=== PATIENT | female | born 1985 | race Caucasian/White ===

== ENCOUNTER → 2017-02-20 | Outpatient (CLI) | payer SELFPAY ==
--- NOTE | 2017-02-20 15:24 | XR ---
EXAMINATION TYPE: XR chest 2V DATE OF EXAM: 02/20/2017 COMPARISON: 09/18/2012 HISTORY: Cough for 3 weeks TECHNIQUE: Frontal and lateral views of the chest are obtained. FINDINGS: There is no focal air space opacity, pleural effusion, or pneumothorax seen. The cardiac silhouette size is within normal limits. The osseous structures are intact. IMPRESSION: No acute cardiopulmonary process.
== END | disposition home or self-care (01) ==
LOC: RADXRMAIN 14:45
PROVIDERS: ATTEND Family Medicine
DX: R05 Cough (principal)
CPT/HCPCS: 71020

== ENCOUNTER 2017-09-30 09:12 | Emergency (ER) | payer SELFPAY | END 2017-09-30 11:37 | disposition home or self-care (01) | LOC: EC 09:12 | DX: G43.909 Migraine, unspecified, not intractable, without status migrainosus (principal); J32.9 Chronic sinusitis, unspecified | CPT/HCPCS: 96361; 96374; 96375; 99283 ==

== ENCOUNTER 2019-06-24 20:10 | Emergency (ER) | payer OTHER ==
[2019-06-24 20:15] VITALS: BP 136/98; PULSE 104; RESP 16; TEMP 97.7
[2019-06-24] MEDS ORDERED: KETOROLAC 30 MG/ML 1 ML VIAL IM STA (20:27)
[2019-06-24] MEDS ORDERED: HYDROcodone/APAP 5-325MG 1 EACH TAB PO STA (20:27)
[2019-06-24] MEDS ORDERED: LIDOCAINE 1% INJ 10MG/ML (20 ML MDV) SQ ONE (20:27)
[2019-06-24] MEDS ORDERED: ACET/COD 300 MG/30 MG STARTER PACK 6 TAB BTL PO STA (20:53)
[2019-06-24] MEDS ORDERED: SULFAMETH-TMP DS STARTER PACK 2 TAB BTL PO STA (20:53)
--- NOTE | 2019-06-24 21:17 | ED ---
General Adult HPI - General Chief complaint: Urogenital Stated complaint: Labial abscesses Time Seen by Provider: 06/24/19 20:18 Source: patient Mode of arrival: ambulatory Limitations: no limitations - History of Present Illness Initial comments: 33-year-old female patient presents to the emergency department today for evaluation of left labial abscess. Patient states that she was seen and evaluated by her physician yesterday and was started on antibiotics. She states that the pain has worsened and she feels like they're becoming larger. She lizzeth es any fevers or chills. States she has had these in the past. States she has never told she had MRSA. She states that there is been some mild drainage today. She denies any concern for sexually transmitted infection is in a monogamous relationship for several years. Patient denies any recent rash, cough, shortness of breath, chest pain, abdominal pain, nausea, vomiting, diarrhea, constipation, back pain, numbness, tingling, dizziness, weakness, hematuria, dysuria, urinary urgency, urinary frequency, headache, visual changes, or any other complaints. - Related Data Home Medications Medication Instructions Recorded Confirmed Desvenlafaxine Succinate [Pristiq 50 mg PO BID 07/10/15 07/10/15 ER] Etonogestrel [Nexplanon ( 68 mg SQ ONCE 07/10/15 07/10/15 control implant)] Multivitamins, Thera [Multivitamin] 1 tab PO DAILY 07/10/15 07/10/15 Nortriptyline [Pamelor] 50 mg PO DAILY 07/10/15 07/10/15 Omeprazole 20 mg PO BID 07/10/15 07/10/15 Previous Rx's Medication Instructions Recorded Amoxic-Pot Clav 875-125Mg 1 tab PO Q12HR #10 tablet 07/13/15 [Augmentin 875-125] HYDROcodone/APAP 7.5-325MG [[place] 1 each PO Q4H PRN #60 tab 07/13/15 7.5] Sulfamethoxazole/Trimethoprim 1 each PO BID #20 tablet 06/24/19 [Bactrim DS 800-160 mg] Allergies Allergy/AdvReac Type Severity Reaction Status Date / Time No Known Allergies Allergy Verified 06/24/19 20:15 Review of Systems ROS Statement: Those systems with pertinent positive or pertinent negative responses have been documented in the HPI. ROS Other: All systems not noted in ROS Statement are negative. Past Medical History Past Medical History: GERD/Reflux Additional Past Medical History / Comment(s): migraines,hypoglycemia History of Any Multi-Drug Resistant Organisms: None Reported Past Surgical History: Tonsillectomy Additional Past Surgical History / Comment(s): breast reduction,tummy tuck,liposuction Past Anesthesia/Blood Transfusion Reactions: Motion Sickness Past Psychological History: Anxiety, Depression Smoking Status: Never smoker Past Alcohol Use History: None Reported Past Drug Use History: None Reported - Past Family History Mother Family Medical History: Unable to Obtain General Exam Limitations: no limitations General appearance: alert, in no apparent distress, other (This is a well- developed, well-nourished adult female patient in no acute distress. Vital signs upon presentation are temperature 97.7F, pulse 104, respirations 16, blood pressure 136/98, pulse ox 100% on room air.) Eye exam: Present: normal appearance, PERRL, EOMI. Absent: scleral icterus, conjunctival injection, periorbital swelling ENT exam: Present: normal exam, normal oropharynx, mucous membranes moist Respiratory exam: Present: normal lung sounds bilaterally. Absent: respiratory distress, wheezes, rales, rhonchi, stridor Cardiovascular Exam: Present: regular rate, normal rhythm, normal heart sounds. Absent: systolic murmur, diastolic murmur, rubs, gallop, clicks External exam: Present: other (There is erythema, swelling, induration noted over the left labia extending approximately 4-5 cm. There is some fluctuance in the lower aspect of the abscess. There is no inguinal tenderness or lymphadenopathy.). Absent: normal external exam Neurological exam: Present: alert, oriented X3, CN II-XII intact Psychiatric exam: Present: normal affect, normal mood Skin exam: Present: warm, dry, intact, normal color. Absent: rash Course Vital Signs 06/24/19 20:13 Temperature 97.7 F Pulse Rate 104 H Respiratory 16 Rate Blood Pressure 136/98 O2 Sat by Pulse 100 Oximetry Procedures - Incision & Drainage Consent Obtained: written consent Indication: Labial abscess Site: other (Left labia majora) Size (cm): 4 Anesthetic Used: lidocaine 1% Amount (mLs): 5 I&D Cleaning Method: Chloroprep Scalpel Used: #11 I&D Drainage Obtained: Pus, Blood Culture Obtained?: Yes Patient Tolerated Procedure: well, no complications Medical Decision Making - Medical Decision Making 33-year-old female patient presents to the emergency department today for evaluation of left labial abscess. Physical examination did reveal a 2 cm x 4 cm area of swelling and erythema consistent with abscess to the left labia. There is fluctuance in the lower aspect of the labia. This was incised and drained as documented. Patient will be started on Bactrim. She is instructed to follow-up with her primary care physician for recheck in 1-2 days. We did give education regarding warm compresses. Return parameters were discussed in detail. Patient verbalizes understanding and agree with this plan. Disposition Clinical Impression: Abscess of left genital labia Disposition: HOME SELF-CARE Condition: Good Instructions (If sedation given, give patient instructions): Abscess (ED), Incision and Drainage (ED) Additional Instructions: Continue to apply warm compresses. Take ibuprofen for pain control. Complete antibiotic prescription and full. Follow-up with the primary care physician for recheck in 1-2 days. Prescriptions: Sulfamethoxazole/Trimethoprim [Bactrim DS 800-160 mg] 1 each PO BID #20 tablet Is patient prescribed a controlled substance at d/c from ED?: No Referrals: Nj Ramirez DO [Primary Care Provider] - 1-2 days Time of Disposition: 21:17
== END 2019-06-24 21:38 | disposition home or self-care (01) ==
LOC: EC 20:10
DX: N76.4 Abscess of vulva (principal); K21.9 Gastro-esophageal reflux disease without esophagitis; F41.9 Anxiety disorder, unspecified; F32.9 Major depressive disorder, single episode, unspecified; Z97.5 Presence of (intrauterine) contraceptive device; Z79.899 Other long term (current) drug therapy
CPT/HCPCS: 99283; 56405; 96372; 87070; 87205; 87077; 87186; J2001; J1885

== ENCOUNTER 2019-11-30 09:23 | Emergency (ER) | payer OTHER ==
[2019-11-30 09:31] VITALS: PULSE 98; RESP 18
[2019-11-30] MEDS ORDERED: AMOXIC-POT CLAV 875MG STARTER PACK 2 TAB BTL PO STA (10:18)
[2019-11-30] MEDS ORDERED: ACET/COD 300 MG/30 MG STARTER PACK 6 TAB BTL PO STA (10:18)
--- NOTE | 2019-11-30 10:20 | ED ---
ENT HPI - General Chief complaint: ENT Stated complaint: Ear infection Time Seen by Provider: 11/30/19 09:45 Source: patient, RN notes reviewed, old records reviewed Mode of arrival: ambulatory Limitations: no limitations - History of Present Illness Initial comments: Patient is a 34 rolled female who presents emergency department today for evaluation for left ear pain. Patient reports that she is diagnosed with otitis externa last week and was started on eardrops. She reports that she's not having a fullness and more pain and pressure in her ears. Patient states that she's had no fevers or chills. She denies any sore throat. She denies any significant history of ear infections as a kid. She states she's had no further swimming. - Related Data Home Medications Medication Instructions Recorded Confirmed Omeprazole 20 mg PO BID 07/10/15 11/30/19 ARIPiprazole 10 mg PO HS 11/30/19 11/30/19 Ofloxacin 0.3% Otic Soln [Floxin 10 drops LEFT EAR DAILY 11/30/19 11/30/19 0.3% Otic Soln] Vortioxetine Hydrobromide 20 mg PO HS 11/30/19 11/30/19 [Trintellix] Previous Rx's Medication Instructions Recorded Amoxic-Pot Clav 875-125Mg 1 tab PO Q12HR #20 tablet 11/30/19 [Augmentin 875-125] Allergies Allergy/AdvReac Type Severity Reaction Status Date / Time No Known Allergies Allergy Verified 11/30/19 10:07 Review of Systems ROS Statement: Those systems with pertinent positive or pertinent negative responses have been documented in the HPI. ROS Other: All systems not noted in ROS Statement are negative. Past Medical History Past Medical History: GERD/Reflux Additional Past Medical History / Comment(s): migraines,hypoglycemia History of Any Multi-Drug Resistant Organisms: None Reported Past Surgical History: Tonsillectomy Additional Past Surgical History / Comment(s): breast reduction,tummy tuck,liposuction Past Anesthesia/Blood Transfusion Reactions: Motion Sickness Past Psychological History: Anxiety, Depression Smoking Status: Never smoker Past Alcohol Use History: None Reported Past Drug Use History: None Reported - Past Family History Mother Family Medical History: Unable to Obtain General Exam - General Exam Comments Initial Comments: 34-year-old female. No distress. Limitations: no limitations General appearance: alert, in no apparent distress Head exam: Present: atraumatic, normocephalic, normal inspection Eye exam: Present: normal appearance, PERRL, EOMI. Absent: scleral icterus, conjunctival injection, periorbital swelling ENT exam: Present: normal exam, mucous membranes moist. Absent: TM's normal bilaterally (Please use medication as discussed. Please follow up with family doctor if symptoms have not improved over the next two days. Please return to the emergency room if your symptoms increase or worsen or for any other concerns. Erythematous left TM evidence of effusion. Patient has tenderness o madhu the left tragus. No mastoid tenderness or erythema.) Neck exam: Present: normal inspection. Absent: tenderness, meningismus, lymphadenopathy Respiratory exam: Present: normal lung sounds bilaterally. Absent: respiratory distress, wheezes, rales, rhonchi, stridor Cardiovascular Exam: Present: regular rate, normal rhythm, normal heart sounds. Absent: systolic murmur, diastolic murmur, rubs, gallop, clicks GI/Abdominal exam: Present: soft, normal bowel sounds. Absent: distended, tenderness, guarding, rebound, rigid Extremities exam: Present: normal inspection, full ROM, normal capillary refill. Absent: tenderness, pedal edema, joint swelling, calf tenderness Back exam: Present: normal inspection Neurological exam: Present: alert, oriented X3, CN II-XII intact Psychiatric exam: Present: normal affect, normal mood Skin exam: Present: warm, dry, intact, normal color. Absent: rash Course Vital Signs 11/30/19 11/30/19 09:27 10:31 Temperature 98.4 F 98.5 F Pulse Rate 98 98 Respiratory 18 18 Rate Blood Pressure 118/79 137/91 O2 Sat by Pulse 100 100 Oximetry Medical Decision Making - Medical Decision Making Left TM is erythematous with evidence of effusion. Discussed using decongestant medication will treat the Patient with oral antibiotic as well. I discussed fully with ENT if symptoms continue to persist. Patient is agreeable to treatment plan. She is aren't using ofloxacin drops and advised to use them twice a day. Disposition Clinical Impression: Otitis media, left Disposition: HOME SELF-CARE Condition: Good Instructions (If sedation given, give patient instructions): Earache (ED) Additional Instructions: Recommended continuing the eardrops to twice a day. Using oral antibiotic as prescribed. Continue alternating between Motrin Tylenol. Follow-up with your nose and throat symptoms continue to persist. Prescriptions: Amoxic-Pot Clav 875-125Mg [Augmentin 875-125] 1 tab PO Q12HR #20 tablet Is patient prescribed a controlled substance at d/c from ED?: No Referrals: Nj Ramirez DO [Primary Care Provider] - 1-2 days Time of Disposition: 10:19
[2019-11-30 10:34] VITALS: BP 137/91; TEMP 98.5
== END 2019-11-30 10:31 | disposition home or self-care (01) ==
LOC: EC 09:23
DX: H66.92 Otitis media, unspecified, left ear (principal); K21.9 Gastro-esophageal reflux disease without esophagitis; F41.9 Anxiety disorder, unspecified; F32.9 Major depressive disorder, single episode, unspecified; Z79.899 Other long term (current) drug therapy; Z86.69 Personal history of other diseases of the nervous system and sense organs
CPT/HCPCS: 99283

== ENCOUNTER 2021-04-27 18:03 | Observation (INO) | payer OTHER ==
[2021-04-27] MEDS ORDERED: ONDANSETRON 4 MG/2 ML VIAL IVP STA (19:17)
[2021-04-27] MEDS ORDERED: SODIUM CHLORIDE 0.9% 1,000 ML IV STA (19:17)
[2021-04-27] MEDS ORDERED: HYDROmorphone 0.5 MG/0.5 ML SYRINGE IVP STA (19:17)
[2021-04-27 19:43] LABS: Basophils % (A) 0 %; Eosinophils # (A) 0.1 k/uL (0-0.7); Eosinophils % (A) 1 %; HCT 37.5 % (34.0-46.0); HGB 11.9 gm/dL (11.4-16.0); Hypochromasia Slight; Lymphocytes # (A) 1.8 k/uL (1.0-4.8); Lymphocytes % (A) 14 %; MCH 28.4 pg (25.0-35.0); MCHC 31.9 g/dL (31.0-37.0); MCV 89.1 fL (80.0-100.0); Monocytes # (A) 0.6 k/uL (0-1.0); Monocytes % (A) 5 %; Neutrophils # (A) 9.9 k/uL (1.3-7.7); Neutrophils % (A) 79 %; Platelet Count 352 k/uL (150-450); RDW 14.5 % (11.5-15.5); WBC 12.5 k/uL (3.8-10.6)
[2021-04-27 19:51] LABS: Appearance,Urine Cloudy (Clear); Bacteria,Urine Rare /hpf; Bilirubin,Urine Negative (Negative); Blood,Urine Negative (Negative); Color,Urine Yellow; Glucose,Urine (UA) Negative (Negative); Hyaline Casts,Urine 4 /lpf (0-2); Ketones,Urine Negative (Negative); Leukocyte Esterase,Urine Trace (Negative); Mucus,Urine Many /hpf; Nitrite,Urine Negative (Negative); PH, Urine 5.5 (5.0-8.0); Protein,Urine Trace (Negative); RBC,Urine <1 /hpf (0-5); Specific Gravity,Urine 1.029 (1.001-1.035); Squamous Epithelial Cell,Urine 7 /hpf (0-4); Urobilinogen,Urine <2.0 mg/dL (<2.0); WBC,Urine 4 /hpf (0-5)
[2021-04-27 19:53] LABS: ALT 52 U/L (4-34); AST 41 U/L (14-36); African American GFR (CKD) >90 (>60 ml/min/1.73 sqM); Alkaline Phosphatase 108 U/L (38-126); Anion Gap 9 mmol/L; Blood Urea Nitrogen 11 mg/dL (7-17); Calcium 8.8 mg/dL (8.4-10.2); Carbon Dioxide 21 mmol/L (22-30); Chloride 108 mmol/L (98-107); Glucose 98 mg/dL (74-99); Lipase 70 U/L (23-300); Non-African American GFR(CKD) >90 (>60 ml/min/1.73 sqM); Potassium 3.6 mmol/L (3.5-5.1); Sodium 138 mmol/L (137-145); Total Bilirubin 1.5 mg/dL (0.2-1.3); Total Protein 7.8 g/dL (6.3-8.2)
--- NOTE | 2021-04-27 21:09 | CT ---
EXAMINATION TYPE: CT abdomen pelvis w con DATE OF EXAM: 04/27/2021 COMPARISON: 12/01/2014 HISTORY: RLQ pain CT DLP: 1933.3 mGycm Automated exposure control for dose reduction was used. CONTRAST: Performed with IV Contrast, patient injected with 100 mL of Isovue 300. Images obtained from the diaphragm to the floor of the pelvis with IV contrast. FINDINGS: There is mild subsegmental atelectasis at the lung bases. Heart size is normal. Liver and spleen are intact. The bile ducts are not dilated. Gallbladder appears absent. There is no pancreatic mass. Stomach is intact. There is no adrenal mass. Kidneys show satisfactory contrast opacification. There is no hydronephrosi s. Delayed images show normal renal excretion. Bladder distends smoothly. There is no inguinal hernia . Uterus is anteverted. There is small amount of free fluid in the pelvis. There is no pelvic mass. Lumbar vertebrae are normal alignment. Disc spaces are fairly normal. Posterior elements are intact. There is no compression fracture. Bony pelvis is intact. The hip joints are intact. There is some fat stranding in the right lower quadrant. There is short appendix which is thickened a nd measures up to 11 mm. There is mild edema around the terminal ileum. There is small amount of flui d at the tip of the cecum. There is no evidence of free air. There is no sign of a bowel obstruction. IMPRESSION: Thickened appendix with fat stranding and patchy areas of fluid which are suggestive of appendicitis with rupture. This is a change compared to old exam.
[2021-04-27] MEDS ORDERED: HYDROmorphone 1 MG/ML 1 ML SYRINGE IVP STA (21:51)
--- NOTE | 2021-04-27 21:52 | ED ---
General Adult HPI - General Chief complaint: Abdominal Pain Stated complaint: abd pain Time Seen by Provider: 04/27/21 18:55 Source: patient, RN notes reviewed Mode of arrival: ambulatory Limitations: no limitations - History of Present Illness Initial comments: 35-year-old female presents to the emergency Department with complaints of right lower quadrant abdominal pain, onset 10:00 this morning. Patient states her pain is worse with movement and palpation. States the pain extends to the right flank intermittently, however is most localized to the right lower quadrant. Reports no change in bowel or bladder habits. Denies taking anything for pain prior to arrival. No fever, chills, chest pain, shortness of breath, nausea, vomiting, diarrhea, dysuria, or hematuria. - Related Data Home Medications Medication Instructions Recorded Confirmed Omeprazole 20 mg PO BID 07/10/15 04/27/21 Topiramate [Topamax] 25 mg PO DIRECTED 04/27/21 04/27/21 Vilazodone HCl [Viibryd] 40 mg PO DIRECTED 04/27/21 04/27/21 Allergies Allergy/AdvReac Type Severity Reaction Status Date / Time cefaclor [From Ceclor] Allergy Hallucinati Verified 04/27/21 22:55 ons Review of Systems ROS Statement: Those systems with pertinent positive or pertinent negative responses have been documented in the HPI. ROS Other: All systems not noted in ROS Statement are negative. Past Medical History Past Medical History: GERD/Reflux Additional Past Medical History / Comment(s): migraines,hypoglycemia History of Any Multi-Drug Resistant Organisms: None Reported Past Surgical History: Cholecystectomy, Tonsillectomy Additional Past Surgical History / Comment(s): breast reduction,tummy tuck,liposuction Past Anesthesia/Blood Transfusion Reactions: Motion Sickness Past Psychological History: Anxiety, Depression Smoking Status: Never smoker Past Alcohol Use History: None Reported Past Drug Use History: None Reported - Past Family History Mother Family Medical History: Unable to Obtain General Exam Limitations: no limitations (Well-developed, well-nourished female in mild distress due to pain. Initial temperature 98.6, pulse 110, respirations 20, blood pressure 159/84, pulse ox 100% on room air.) General appearance: alert, other (Well-developed, well-nourished female in mild distress due to pain. Initial temperature 98.6, pulse 110, respirations 20, blood pressure 159/84, pulse ox 100% on room air.) Eye exam: Present: normal appearance, PERRL, EOMI. Absent: scleral icterus, conjunctival injection, periorbital swelling ENT exam: Present: normal exam, normal oropharynx, mucous membranes moist Respiratory exam: Present: normal lung sounds bilaterally. Absent: respiratory distress, wheezes, rales, rhonchi, stridor Cardiovascular Exam: Present: regular rate, normal rhythm, normal heart sounds. Absent: systolic murmur, diastolic murmur, rubs, gallop, clicks GI/Abdominal exam: Present: soft, tenderness ([place] right lower quadrant abdominal pain worsening upon palpation and with movement), guarding, rebound, normal bowel sounds. Absent: distended Back exam: Absent: CVA tenderness (R), CVA tenderness (L) Neurological exam: Present: alert, oriented X3, CN II-XII intact Psychiatric exam: Present: normal affect, normal mood Skin exam: Present: warm, dry, intact, normal color. Absent: rash Course Vital Signs 04/27/21 04/27/21 18:10 21:10 Temperature 98.6 F Pulse Rate 110 H 96 Respiratory 20 20 Rate Blood Pressure 159/84 135/86 O2 Sat by Pulse 100 100 Oximetry - Reevaluation(s) Reevaluation #1: 04/27/21 21:[address] Joya, on-call for surgery, regarding CT findings. He will plan to take patient to the OR this evening therefore she will remain NPO and given Zosyn IVPB. 04/27/21 21:45 Spoke with patient confirms last intake of solid food was at noon today. He did consume approximately 8-12 ounces of water around 5:30 this evening. Has had nothing to eat or drink since. Medical Decision Making - Medical Decision Making 35-year-old female with a history of cholecystectomy presents to the emergency [facility] with complaints of right lower quadrant abdominal pain, onset 10:00 this morning. Upon exam, patient appears mildly uncomfortable, but is able to tolerate pain. Vital signs are stable; patient is afebrile. Physical exam findings are positive for right lower quadrant abdominal tenderness upon palpation and with any movement. No nausea or vomiting at this time. Patient has no bowel or bladder symptoms. Laboratory studies were reviewed showing an elevated white blood cell count. Urinalysis was unremarkable. CT of the abdomen and pelvis with contrast was obtained and shows thickened appendix with concern for rupture. I spoke with Dr. Joya regarding these findings. He plans to take her to surgery tonight therefore patient will be given Zosyn and will continue to remain nothing by mouth. This patient's care was discussed with my attending physician, Dr. Bynum. - Lab Data Result diagrams: 04/27/21 19:30 04/27/21 19:30 Lab Results 04/27/21 04/27/21 04/27/21 Range/Units 19:30 19:30 19:30 WBC 12.5 H (3.8-10.6) k/uL RBC 4.20 (3.80-5.40) m/uL Hgb 11.9 (11.4-16.0) gm/dL Hct 37.5 (34.0-46.0) % MCV 89.1 (80.0-100.0) fL MCH 28.4 (25.0-35.0) pg MCHC 31.9 (31.0-37.0) g/dL RDW 14.5 (11.5-15.5) % Plt Count 352 (150-450) k/uL MPV 8.0 Neutrophils % 79 % Lymphocytes % 14 % Monocytes % 5 % Eosinophils % 1 % Basophils % 0 % Neutrophils # 9.9 H (1.3-7.7) k/uL Lymphocytes # 1.8 (1.0-4.8) k/uL Monocytes # 0.6 (0-1.0) k/uL Eosinophils # 0.1 (0-0.7) k/uL Basophils # 0.0 (0-0.2) k/uL Hypochromasia Slight Sodium (137-145) mmol/L Potassium (3.5-5.1) mmol/L Chloride (98-107) mmol/L Carbon Dioxide (22-30) mmol/L Anion Gap mmol/L BUN (7-17) mg/dL Creatinine (0.52-1.04) mg/dL Est GFR (CKD-EPI)AfAm (>60 ml/min/1.73 sqM) Est GFR (CKD-EPI)NonAf (>60 ml/min/1.73 sqM) Glucose (74-99) mg/dL Calcium (8.4-10.2) mg/dL Total Bilirubin (0.2-1.3) mg/dL AST (14-36) U/L ALT (4-34) U/L Alkaline Phosphatase (38-126) U/L Total Protein (6.3-8.2) g/dL Albumin (3.5-5.0) g/dL Lipase (23-300) U/L Urine Color Yellow Urine Appearance Cloudy H (Clear) Urine pH 5.5 (5.0-8.0) Ur Specific [place] 1.029 (1.001-1.035) Urine Protein Trace H (Negative) Urine Glucose (UA) Negative (Negative) Urine Ketones Negative (Negative) Urine Blood Negative (Negative) Urine Nitrite Negative (Negative) Urine Bilirubin Negative (Negative) Urine Urobilinogen <2.0 (<2.0) mg/dL Ur Leukocyte Esterase Trace H (Negative) Urine RBC <1 (0-5) /hpf Urine WBC 4 (0-5) /hpf Ur Squamous Epith Cells 7 H (0-4) /hpf Urine Bacteria Rare H (None) /hpf Hyaline Casts 4 H (0-2) /lpf Urine Mucus Many H (None) /hpf Urine HCG, Qual Not Detected (Not Detectd) Coronavirus (PCR) (Not Detectd) 04/27/21 04/27/21 Range/Units 19:30 22:11 WBC (3.8-10.6) k/uL RBC (3.80-5.40) m/uL Hgb (11.4-16.0) gm/dL Hct (34.0-46.0) % MCV (80.0-100.0) fL MCH (25.0-35.0) pg MCHC (31.0-37.0) g/dL RDW (11.5-15.5) % Plt Count (150-450) k/uL MPV Neutrophils % % Lymphocytes % % Monocytes % % Eosinophils % % Basophils % % Neutrophils # (1.3-7.7) k/uL Lymphocytes # (1.0-4.8) k/uL Monocytes # (0-1.0) k/uL Eosinophils # (0-0.7) k/uL Basophils # (0-0.2) k/uL Hypochromasia Sodium 138 (137-145) mmol/L Potassium 3.6 (3.5-5.1) mmol/L Chloride 108 H (98-107) mmol/L Carbon Dioxide 21 L (22-30) mmol/L Anion Gap 9 mmol/L BUN 11 (7-17) mg/dL Creatinine 0.76 (0.52-1.04) mg/dL Est GFR (CKD-EPI)AfAm >90 (>60 ml/min/1.73 sqM) Est GFR (CKD-EPI)NonAf >90 (>60 ml/min/1.73 sqM) Glucose 98 (74-99) mg/dL Calcium 8.8 (8.4-10.2) mg/dL Total Bilirubin 1.5 H (0.2-1.3) mg/dL AST 41 H (14-36) U/L ALT 52 H (4-34) U/L Alkaline Phosphatase 108 (38-126) U/L Total Protein 7.8 (6.3-8.2) g/dL Albumin 4.0 (3.5-5.0) g/dL Lipase 70 (23-300) U/L Urine Color Urine Appearance (Clear) Urine pH (5.0-8.0) Ur Specific [place] (1.001-1.035) Urine Protein (Negative) Urine Glucose (UA) (Negative) Urine Ketones (Negative) Urine Blood (Negative) Urine Nitrite (Negative) Urine Bilirubin (Negative) Urine Urobilinogen (<2.0) mg/dL Ur Leukocyte Esterase (Negative) Urine RBC (0-5) /hpf Urine WBC (0-5) /hpf Ur Squamous Epith Cells (0-4) /hpf Urine Bacteria (None) /hpf Hyaline Casts (0-2) /lpf Urine Mucus (None) /hpf Urine HCG, Qual (Not Detectd) Coronavirus (PCR) Not Detected (Not Detectd) - Radiology Data Radiology results: report reviewed, image reviewed CT of the abdomen and pelvis with contrast was obtained. Report was reviewed in its entirety. Impression per Dr. Cheung is thickened appendix with fat stranding and patchy areas of fluid which are suggestive of appendicitis with rupture. This is a change compared to old exam. Disposition Clinical Impression: Acute appendicitis Disposition: ADMITTED IP TO THIS [facility] Condition: Serious Is patient prescribed a controlled substance at d/c from ED?: No Decision Date: 04/27/21 Decision Time: 22:16
[2021-04-27] MEDS ORDERED: PIPERACILLIN-TAZOBACTAM 3.375 GM in SODIUM CHLORIDE 0.9% 100 ML IVPB ONE (22:00)
[2021-04-27] MEDS ORDERED: NALOXONE 0.4 MG/ML 1 ML VIAL IV PRN (22:11)
[2021-04-27] MEDS: SODIUM CHLORIDE 0.9% 1,000 ML IV SCH (22:28)
[2021-04-27] MEDS ORDERED: DEXAMETHASONE SOD PHOSPHATE 10 MG/ML 1 ML VIAL ONE (23:08)
[2021-04-27] MEDS ORDERED: GLYCOPYRROLATE 0.2 MG/ML 2 ML VIAL ONE (23:08)
[2021-04-27] MEDS ORDERED: PROPOFOL 10 MG/ML 20 ML VIAL IV ONE (23:08)
[2021-04-27] MEDS ORDERED: MIDAZOLAM 2 MG/2 ML VIAL ONE (23:08)
[2021-04-27] MEDS ORDERED: LIDOCAINE 1% INJ 10MG/ML (20 ML MDV) ONE (23:08)
[2021-04-27] MEDS ORDERED: ONDANSETRON 4 MG/2 ML VIAL ONE (23:08)
[2021-04-27] MEDS ORDERED: NEOSTIGMINE 1 MG/ML 10 ML VIAL ONE (23:08)
[2021-04-27] MEDS ORDERED: ROCURONIUM 10 MG/ML (5 ML VIAL) IV ONE (23:08)
[2021-04-27] MEDS ORDERED: KETOROLAC 15 MG/ML 1 ML VIAL ONE (23:08)
[2021-04-27] MEDS ORDERED: SUCCINYLCHOLINE CHLORIDE 100 MG/5 ML SYR IV ONE (23:08)
[2021-04-27] MEDS ORDERED: fentaNYL (PF) 50 MCG/ML 2 ML AMP ONE (23:08)
[2021-04-27] MEDS ORDERED: IV FLUID CONTINUATION 500 ML IV ONE (23:11)
--- NOTE | 2021-04-27 23:15 | P.GSCN ---
History of Present Illness Consult date: 04/27/21 History of present illness: This is a 35-year-old female presented a hospital today with a chief complaint of abdominal pain. She stated began when she woke up and get worse at the day. She says states she last ate at noon. She's never had pain like this before in the past she's had a cholecystectomy before in the past she states her pain is mostly in her right lower quadrant. She denies any nausea vomiting she denies any recent sick contacts. Computed tomography scan revealed acute appendicitis with questionable perforation. Past Medical History Past Medical History: GERD/Reflux Additional Past Medical History / Comment(s): migraines,hypoglycemia History of Any Multi-Drug Resistant Organisms: None Reported Past Surgical History: Cholecystectomy, Tonsillectomy Additional Past Surgical History / Comment(s): breast reduction,tummy tuck,liposuction Past Anesthesia/Blood Transfusion Reactions: Motion Sickness Past Psychological History: Anxiety, Depression Smoking Status: Never smoker Past Alcohol Use History: None Reported Past Drug Use History: None Reported - Past Family History Mother Family Medical History: Unable to Obtain Medications and Allergies Home Medications Medication Instructions Recorded Confirmed Type Omeprazole 20 mg PO BID 07/10/15 04/27/21 History Topiramate [Topamax] 25 mg PO DIRECTED 04/27/21 04/27/21 History Vilazodone HCl [Viibryd] 40 mg PO DIRECTED 04/27/21 04/27/21 History Allergies Allergy/AdvReac Type Severity Reaction Status Date / Time cefaclor [From Ceclor] Allergy Hallucinati Verified 04/27/21 22:55 ons Surgical - Exam Osteopathic Statement: *. No significant issues noted on an osteopathic structural exam other than those noted in the History and Physical/Consult. Vital Signs Temp Pulse Resp BP Pulse Ox 98.6 F 110 H 20 159/84 100 04/27/21 18:10 04/27/21 18:10 04/27/21 18:10 04/27/21 18:10 04/27/21 18:10 - General well developed, well nourished, no distress - Neck trachea midline - Respiratory normal expansion, normal respiratory effort - Cardiovascular Rhythm: regular - Abdomen Tender to palpation with right lower quadrant no rebound no rigidity no guarding Abdomen: soft - Neurologic normal coordination, normal sensation - Psychiatric oriented to time, oriented to person, oriented to place Results - Labs 04/27/21 19:30 04/27/21 19:30 Abnormal Lab Results - Last 24 Hours (Table) 04/27/21 04/27/21 04/27/21 Range/Units 19:30 19:30 19:30 WBC 12.5 H (3.8-10.6) k/uL Neutrophils # 9.9 H (1.3-7.7) k/uL Chloride 108 H (98-107) mmol/L Carbon Dioxide 21 L (22-30) mmol/L Total Bilirubin 1.5 H (0.2-1.3) mg/dL AST 41 H (14-36) U/L ALT 52 H (4-34) U/L Urine Appearance Cloudy H (Clear) Urine Protein Trace H (Negative) Ur Leukocyte Esterase Trace H (Negative) Ur Squamous Epith Cells 7 H (0-4) /hpf Urine Bacteria Rare H (None) /hpf Hyaline Casts 4 H (0-2) /lpf Urine Mucus Many H (None) /hpf Diabetes panel 04/27/21 Range/Units 19:30 Sodium 138 (137-145) mmol/L Potassium 3.6 (3.5-5.1) mmol/L Chloride 108 H (98-107) mmol/L Carbon Dioxide 21 L (22-30) mmol/L BUN 11 (7-17) mg/dL Creatinine 0.76 (0.52-1.04) mg/dL Glucose 98 (74-99) mg/dL Calcium 8.8 (8.4-10.2) mg/dL AST 41 H (14-36) U/L ALT 52 H (4-34) U/L Alkaline Phosphatase 108 (38-126) U/L Total Protein 7.8 (6.3-8.2) g/dL Albumin 4.0 (3.5-5.0) g/dL Calcium panel 04/27/21 Range/Units 19:30 Calcium 8.8 (8.4-10.2) mg/dL Albumin 4.0 (3.5-5.0) g/dL Pituitary panel 04/27/21 Range/Units 19:30 Sodium 138 (137-145) mmol/L Potassium 3.6 (3.5-5.1) mmol/L Chloride 108 H (98-107) mmol/L Carbon Dioxide 21 L (22-30) mmol/L BUN 11 (7-17) mg/dL Creatinine 0.76 (0.52-1.04) mg/dL Glucose 98 (74-99) mg/dL Calcium 8.8 (8.4-10.2) mg/dL Adrenal panel 04/27/21 Range/Units 19:30 Sodium 138 (137-145) mmol/L Potassium 3.6 (3.5-5.1) mmol/L Chloride 108 H (98-107) mmol/L Carbon Dioxide 21 L (22-30) mmol/L BUN 11 (7-17) mg/dL Creatinine 0.76 (0.52-1.04) mg/dL Glucose 98 (74-99) mg/dL Calcium 8.8 (8.4-10.2) mg/dL Total Bilirubin 1.5 H (0.2-1.3) mg/dL AST 41 H (14-36) U/L ALT 52 H (4-34) U/L Alkaline Phosphatase 108 (38-126) U/L Total Protein 7.8 (6.3-8.2) g/dL Albumin 4.0 (3.5-5.0) g/dL Assessment and Plan Assessment: Acute appendicitis Plan: I discussed with the patient laparoscopic appendectomy possible open. Risks of bleeding infection damage surrounding tissue need further operation need for conversion open were all discussed the patient she states she's understood agreed and consented. Informed consent was obtained to be started on IV antibiotics and IV fluids and kept nothing by mouth.
[2021-04-27] MEDS ORDERED: LACTATED RINGERS 1,000 ML IV ONE (23:20)
[2021-04-27] MEDS ORDERED: BUPIVACAIN-EPI 0.25%-1:200,000 30 ML VIAL SQ ONE ×2 (23:26)
[2021-04-27] MEDS ORDERED: TOPIRAMATE 25 MG TAB PO SCH (23:45)
--- NOTE | 2021-04-27 23:57 | P.OP ---
Date of Procedure: 04/27/21 Preoperative Diagnosis: Acute appendicitis Postoperative Diagnosis: Same Procedure(s) Performed: Laparoscopic appendectomy Anesthesia: [id number] Surgeon: Jet Joya Estimated Blood Loss (ml): 5 Condition: stable Disposition: floor Description of Procedure: Patient is brought operative suite remained in supine position underwent general endotracheal anesthesia per Department of anesthesia prepped and draped usual sterile fashion timeout performed correct patient correct procedure correct site was verified. A 5 mm incision was made in the left upper quadrant and using a 5 mm Visiport the abdomen was entered under direct visualization and insufflated. No injuries were noted. A 12 mm port was placed in the left midabdomen and a 5 mm port was placed infraumbilical. The patient was placed head down right side up and the appendix is identified and was noted to have suppurative fluid around it and adhesions these were broken up bluntly the mesoappendix is taken down with a LigaSure device to the base of the cecum there was no gross perforation of the appendix noted it was gangrenous appearing. The base the appendix did not appear to be gangrenous. A 60 mm purple load Endo DALLAS stapler was used to staple across the base of the appendix at the cecum. Hemostasis was noted the appendix placed in a Endo Catch bag and removed through the 12 mm port site. Suction snowboarder was used to suction the area around the base the appendix and irrigated and no other abnormalities are noted hemostasis was once again noted. The 12 mm port site fascia was closed with an 0 Vicryl with the aid of a Bran- Nevin suture passer. All ports removed under direct visualization the abdomen was desufflated 4-0 Monocryl was used to close the skin followed by skin glue patient tolerated the procedure well there are no apparent complications
[2021-04-28] MEDS ORDERED: ONDANSETRON 4 MG/2 ML VIAL IVP PRN
[2021-04-28 00:43] VITALS: RESP 16
[2021-04-28] MEDS: HYDROcodone/APAP 5-325MG 1 EACH TAB PO PRN ×2 (05:49→11:46)
[2021-04-28] MEDS: SODIUM CHLORIDE 0.9% 1,000 ML IV SCH ×2 (07:40→12:08)
[2021-04-28 11:00] LABS: Basophils % (A) 0 %; Eosinophils % (A) 0 %; HCT 33.5 % (34.0-46.0); HGB 10.6 gm/dL (11.4-16.0); Hypochromasia Slight; Lymphocytes # (A) 0.6 k/uL (1.0-4.8); Lymphocytes % (A) 7 %; MCH 28.5 pg (25.0-35.0); MCHC 31.6 g/dL (31.0-37.0); MCV 90.4 fL (80.0-100.0); Mean Platelet Volume 8.1; Monocytes # (A) 0.2 k/uL (0-1.0); Monocytes % (A) 2 %; Neutrophils # (A) 7.1 k/uL (1.3-7.7); Neutrophils % (A) 90 %; Platelet Count 317 k/uL (150-450); RDW 14.4 % (11.5-15.5); WBC 7.8 k/uL (3.8-10.6)
[2021-04-28] MEDS ORDERED: TOPIRAMATE 25 MG TAB PO SCH (12:00)
--- NOTE | 2021-04-28 14:44 | P.DS ---
Providers Date of admission: 04/27/21 22:13 Attending physician: Jet Joya DO Primary care physician: Nj Ramirez [facility] Course: Patient was admitted, underwent uncomplicated Lap Appy for acute appendicitis. POD1 she was doing well with no complaints. DC home with instructions to follow up as outpatient Patient Condition at Discharge: Serious Plan - Discharge Summary Discharge Rx Participant: No New Discharge Prescriptions: New Docusate [Colace] 100 mg PO DAILY 10 Days capsule HYDROcodone/APAP 5-325MG [Marcellus 5-325] 1 tab PO Q4HR PRN 3 Days #18 tab PRN Reason: Pain No Action RX: Omeprazole 20 mg PO BID Vilazodone HCl [Viibryd] 40 mg PO DIRECTED Topiramate [Topamax] 25 mg PO DIRECTED Discharge Medication List RX: Omeprazole 20 mg PO BID 07/10/15 [History] Topiramate [Topamax] 25 mg PO DIRECTED 04/27/21 [History] Vilazodone HCl [Viibryd] 40 mg PO DIRECTED 04/27/21 [History] Docusate [Colace] 100 mg PO DAILY 10 Days capsule 04/28/21 [Rx] HYDROcodone/APAP 5-325MG [Marcellus 5-325] 1 tab PO Q4HR PRN 3 Days #18 tab 04/28/21 [Rx] Follow up Appointment(s)/Referral(s): Nj Ramirez DO [Primary Care Provider] - 1-2 days Jet Joya DO [Doctor of Osteopathic Medicine] - 2 Weeks Activity/Diet/Wound Care/Special Instructions: no lifting over 15 lbs can shower today no swimming or baths for 3 weeks Discharge Disposition: HOME SELF-CARE
[2021-04-28 14:48] VITALS: BP 124/74; PULSE 101; TEMP 98.2
== END 2021-04-28 17:11 | disposition home or self-care (01) ==
LOC: EC 18:03 → 4SSUR 22:13
PROVIDERS: ADMIT Student in an Organized Health Care Education/Training Program; ATTEND Student in an Organized Health Care Education/Training Program
DX: K35.80 Unspecified acute appendicitis (principal); K36 Other appendicitis; K21.9 Gastro-esophageal reflux disease without esophagitis; E16.2 Hypoglycemia, unspecified; G43.909 Migraine, unspecified, not intractable, without status migrainosus; F32.A Depression, unspecified; F41.9 Anxiety disorder, unspecified; Z79.899 Other long term (current) drug therapy; Z88.1 Allergy status to other antibiotic agents; Z90.49 Acquired absence of other specified parts of digestive tract; Z98.890 Other specified postprocedural states; Z20.822 Contact with and (suspected) exposure to COVID-19
CPT/HCPCS: 44970; 96376; 96361; 96374; 96375; 99285; 36415; 88304; 80053; 83690; 85025 ×2; 81001; 81025; 87635; 74177; G0378 ×2; J2543; J2250; J1100; J2710; J2405; J2001; J3010; J1170 ×2; J1885; J0330; J2704; Q9967

== ENCOUNTER → 2024-09-27 | Outpatient (CLI) | payer OTHER ==
--- NOTE | 2024-09-28 07:45 | MM ---
Reason for Exam: Screening (asymptomatic). Patient History: Menarche at age 10. First Full-Term at age 27. 2009, Bilateral Reduction. Paternal aunt had breast cancer. Risk Values: Meeta 5 year model risk: 0.7%. NCI Lifetime model risk: 11.0%. Tissue Density: The breasts are almost entirely fatty. Findings: Analyzed By CAD. Asymmetry right upper outer quadrant measuring 13.8 cm from the nipple on CC view. Measuring 9 mm. On the left 2 asymmetries lateral upper aspect up to 8.3 and 15.7 cm nipple measuring 9 and 6 mm respectively. Overall Assessment: Incomplete: need additional imaging evaluation, BI-RAD 0 Management: Diagnostic Breast Ultrasound of both breasts. [facility] will attempt to contact patient to return for supplemental views and ultrasound if indicated. Patient should continue monthly self-breast exams. A clinical breast exam by your physician is recommended on an annual basis. This exam should not preclude additional follow-up of suspicious palpable abnormalities. Note on Meeta scores and lifetime risk: 1. A Meeta score greater than 3% is considered moderate risk. If this is the case, consider specialist referral to assess eligibility for a risk reducing agent. 2. If overall lifetime risk for the development of breast cancer is 20% or higher, the patient may qualify for future screening with alternating mammogram and breast MRI. [facility], , 09/28/2024 7:41 AM. Electronically signed and approved by: Ace Saxena DO
== END | disposition home or self-care (01) ==
LOC: RADMAMWWP 16:03
PROVIDERS: ATTEND Obstetrics & Gynecology Obstetrics
DX: Z12.31 Encounter for screening mammogram for malignant neoplasm of breast (principal); R92.313 Mammographic fatty tissue density, bilateral breasts; Z80.3 Family history of malignant neoplasm of breast
CPT/HCPCS: 77063; 77067

== ENCOUNTER → 2024-09-29 | Outpatient (CLI) | payer OTHER ==
--- NOTE | 2024-09-29 12:11 | USB ---
Reason for Exam: Additional evaluation requested from abnormal screening. Patient History: Menarche at age 10. First Full-Term at age 27. 2010, Bilateral Reduction. Paternal aunt had breast cancer. Risk Values: Meeta 5 year model risk: 0.7%. NCI Lifetime model risk: 11.0%. Prior Study Comparison: 09/27/2024 Bilateral MG 3D screening mammo w/cad, [facility]. Findings: The upper outer quadrant of the right breast, the lateral section of the breast of the left breast, the axilla of both breasts and the retroareolar of both breasts were scanned. Technique utilized:US breast workup limited ANIYAH Image; Ultrasound imaging of: All 4 quadrants, the retroareolar region and axilla. Multiple hypoechoic masses some with fatty hilum. These are favored represent lymph nodes including: Right breast: 9:00 14 cm from the nipple measuring 6 x 4 x 5 mm. Right breast: 10:00 14 cm from the nipple measuring 7 x 4 x 5 mm. Left breast: 2:00 8 cm from the nipple measuring 9 x 5 x 9 mm. No suspicious masses. Overall Assessment: Probably benign, BI-RAD 3 Management: Diagnostic Breast Ultrasound of the right breast in 6 months. Probable bilateral lymph nodes noted. A clinical breast exam by your physician is recommended on an annual basis and results should be correlated with mammographic findings. This exam should not preclude additional follow-up of suspicious palpable abnormalities. Results were given to the patient verbally at the time of exam. [facility], , 09/29/2024 12:08 PM. Electronically signed and approved by: Ace Saxena DO
== END | disposition home or self-care (01) ==
LOC: RADUSWWP 11:02
PROVIDERS: ATTEND Obstetrics & Gynecology Obstetrics
DX: R92.8 Other abnormal and inconclusive findings on diagnostic imaging of breast (principal); Z80.3 Family history of malignant neoplasm of breast